=== PATIENT | female | born 1965 | race Caucasian/White ===

== ENCOUNTER 2017-04-19 01:10 | Emergency (ER) | payer MEDICAID ==
[~2017-04-19] VITALS: Ht 167.6 cm; Wt 115.0 kg
[2017-04-19 01:17] VITALS: Ht 167.6 cm; Wt 115.0 kg
[2017-04-19] MEDS ORDERED: SULF1TAB31 PO (02:33)
[2017-04-19] MEDS ORDERED: CEPH-443 PO (02:33)
[2017-04-19] MEDS ORDERED: CLOT30CR24 TOP (02:33)
[2017-04-19] MEDS ORDERED: FLUC150T17 PO (02:33)
--- NOTE | 2017-04-19 02:46 | ERD ---
ER Documentation Chief Complaint Date/Time DATE: 04/19/17 TIME: 02:42 Chief Complaint Pt reports toilet overflow on r foot thursday, foot swollen and itchy HPI 56-year-old female presents here in emergency department for complaints of right foot redness and swelling, patient was cleaning the bathroom one week ago , some water overflowed and went into her shoe, her foot was wet for hours, per removal of her shoe, some skin got macerated, now is complaining of redness and swelling, was told by the clinic that she may have full infection. Patient did not have any treatment. Patient denies any numbness or tingling. Patient complains of pain sharp in 6/10 scale, worse upon touching the area, noted some macerated skin on some parts of the affected area. No purulent discharge. ROS All systems reviewed and are negative except as per history of present illness. Medications Home Meds Active Scripts Clotrimazole* (Clotrimazole* AF) 1% - 30 Gm Cream.gm., 1 APPLIC TOP BID for 7 Days, TUB Prov:COCO WALDEN NP 04/19/17 Fluconazole* (Diflucan*) 150 Mg Tablet, 150 MG PO ONCE, #1 TAB Prov:COCO WALDEN NP 04/19/17 Cephalexin* (Keflex*) 500 Mg Capsule, 500 MG PO QID for 10 Days, CAP Prov:COCO WALDEN NP 04/19/17 Sulfamethoxazole/Trimethoprim* (Bactrim Ds* Tablet) 1 Each Tablet, 1 TAB PO BID , #20 TAB Prov:COCO WALDEN NP 04/19/17 Allergies Allergies: Coded Allergies: No Known Allergy (Unverified , 04/19/17) PMhx/Soc Medical and Surgical Hx: pt denies Medical Hx, pt denies Surgical Hx FmHx Family History: No coronary disease, No diabetes, No other Physical Exam Vitals Vital Signs Date Time Temp Pulse Resp B/P Pulse Ox O2 Delivery O2 Flow Rate FiO2 04/19/17 01:17 98.4 61 18 130/76 96 Physical Exam GENERAL: The patient is well developed and appropriate for usual state of health, in no apparent distress. CHEST: Clear to auscultation bilaterally. There are no rales, wheezes or rhonchi. HEART: Regular rate and rhythm. No murmurs, clicks, rubs or gallops. No S3 or S4. ABDOMEN: Soft, nontender and nondistended. Good bowel sounds. No rebound or guarding. No gross peritonitis. No gross organomegaly or masses. No Nichols sign or McBurney point tenderness. BACK: No midline or flank tenderness. EXTREMITIES: Equal pulses bilaterally. There is no peripheral clubbing, cyanosis or edema. No focal swelling or erythema. Full range of motion. Grossly neurovascularly intact. NEURO: Alert and oriented. Cranial nerves 2-12 intact. Motor strength in all 4 extremities with 5/5 strength. Sensation grossly intact. Normal speech and gait. SKIN: Noted redness and swelling in the right foot, with induration noted, macerated skin noted in between the toes. No discharge noted. No fluctuance noted. There is no apparent ecchymosis or petechia. The skin is warm and dry. HEMATOLOGIC AND LYMPHATIC: There is no evidence of excessive bruising or lymphedema. No gross cervical, axillary, or inguinal lymphadenopathy. Procedures/MDM medical decision making: Patient symptoms suspect is consistent with a fungal infection, tinea pedis, with secondary cellulitis. No symptoms of any neurovascular compromise. No history of any trauma on affected area. No symptoms of any sepsis at this time. Patient appears well and is hemodynamically stable. Patient does not have any fever. No symptoms of any necrosis. Prescription was given for clotrimazole cream, Diflucan, Keflex and Bactrim, is advised to elevated affected area, follow-up with primary care doctor in 2 days for reevaluation of symptoms. Patient is advised to return to emergency department for any worsening symptoms. Disposition: Home. Stable. Departure Diagnosis: Primary Impression: Tinea pedis Laterality: right Qualified Code: B35.3 - Tinea pedis of right foot Additional Impression: Cellulitis Site of cellulitis: extremity Site of cellulitis of extremity: lower extremity Laterality: right Qualified Code: L03.115 - Cellulitis of right lower extremity Condition: Stable Patient Instructions: Cellulitis, Athlete'S Foot COCO WALDEN NP Apr 19, 2017 02:46
[2017-04-19 02:59] VITALS: BP 128/77; PULSE 78; RESP 18
== END 2017-04-19 03:25 | disposition home or self-care (01) ==
LOC: FTE 01:10
DX: B35.3 Tinea pedis (principal); L03.115 Cellulitis of right lower limb
CPT/HCPCS: 99284